=== PATIENT | female | born 1990 | race African-American/Black ===

== ENCOUNTER 2024-06-08 04:13 | Inpatient (IN) | payer BC ==
[2024-06-08] VITALS (10 sets, daily range): BP systolic 93–114; BP diastolic 69–89; TEMP 97.9–98.7; O2SAT 94–97
[~2024-06-08] VITALS: Ht 175.3 cm; Wt 74.8 kg
[2024-06-08 05:33] LABS: BASOPHILS % (AUTO) 0.4 % (0.0-2.0); EOSINOPHILS # (AUTO) 0.1 K/uL (0.0-0.7); EOSINOPHILS % (AUTO) 2.1 % (0.0-7.0); HEMATOCRIT 39.8 % (31.2-41.9); HEMOGLOBIN 13.4 g/dL (10.9-14.3); LYMPHOCYTES # (AUTO) 4.5 K/uL (0.8-4.8); LYMPHOCYTES % (AUTO) 63.7 % (20.5-51.5); MEAN CORPUSCULAR HEMOGLOBIN 29.3 uug (24.7-32.8); MEAN CORPUSCULAR HGB CONC 34 g/dL (32.3-35.6); MEAN CORPUSCULAR VOLUME 86.7 fL (75.5-95.3); MONOCYTES # (AUTO) 0.2 K/uL (0.1-1.30); MONOCYTES % (AUTO) 2.4 % (0.0-11.0); NEUTROPHILS # (AUTO) 2.2 K/uL (1.8-8.9); NEUTROPHILS % (AUTO) 31.4 % (38.5-71.5); PLATELET COUNT (AUTO) 145 K/uL (179-408); RED BLOOD CELL COUNT(AUTO) 4.59 MIL/uL (3.63-4.92); RED CELL DISTRIBUTION WIDTH 13.8 % (12.3-17.7)
[2024-06-08] MEDS ORDERED: ONDANSETRON 4 MG/2 ML VIAL ONE (05:38)
[2024-06-08] MEDS: ONDANSETRON 4 MG/2 ML VIAL IV ONE (05:40)
[2024-06-08 05:45] LABS: AMMONIA 26 umol/L (11-32)
[2024-06-08 05:53] LABS: ALANINE AMINOTRANSFERASE 319 U/L (14-59); ALBUMIN 3.7 g/dL (3.4-5.0); ALKALINE PHOSPHATASE 128 U/L (50-136); ASPARTATE AMINOTRANSFERASE 324 U/L (15-37); BILIRUBIN,DIRECT 0.2 mg/dL (0.0-0.2); BILIRUBIN,TOTAL 0.6 mg/dL (0.2-1.0); CALCIUM 8.7 mg/dL (8.5-10.1); CARBON DIOXIDE 26 mmol/L (21-32); CHLORIDE 103 mmol/L (98-107); CREATININE 1.2 mg/dL (0.6-1.3); GLUCOSE 205 mg/dL (74-106); POTASSIUM 3.7 mmol/L (3.5-5.1); SODIUM SERUM 143 mmol/L (136-145); UREA NITROGEN, BLOOD 14 mg/dL (7-18)
[2024-06-08 06:04] LABS: DIFFERENTIAL COMMENT 1
[2024-06-08 07:17] LABS: *BILIRUBIN,URIN NEGATIVE (NEGATIVE); *BLOOD, URINE NEGATIVE (NEGATIVE); *CLARITY,URINE CLEAR (CLEAR); *COLOR,URINE YELLOW (YELLOW); *KETONES,URINE NEGATIVE (NEGATIVE); *PROTEIN,URINE 2+ (NEGATIVE); *UROBILINOGEN,URINE 0.2 E.U./dl (NORMAL); LEUKOCYTE ESTERASE ,URINE NEGATIVE (NEGATIVE); NITRITE, URINE NEGATIVE (NEGATIVE); PH,URINE 5.5 (5.0-8.0); UGLUCOSE NEGATIVE (NEGATIVE)
[2024-06-08] MEDS: IV NS 1000 ML 1,000 ML IV ONE (07:19)
[2024-06-08 07:33] LABS: *AMPHETAMINE, URINE NEGATIVE (NEGATIVE); *BARBITURATE, URINE NEGATIVE (NEGATIVE); *BENZODIAZEPINE, URINE NEGATIVE (NEGATIVE); *CANNABINOID, URINE NEGATIVE (NEGATIVE); *COCCAINE, URINE NEGATIVE (NEGATIVE); *OPIATE, URINE NEGATIVE (NEGATIVE); *PHENCYCLIDINE SCREEN,URINE NEGATIVE (NEGATIVE); FENTANYL, URINE NEGATIVE (NEGATIVE)
[2024-06-08] MEDS ORDERED: IV NORMAL SALINE 250 ML IV ONE (07:33)
[2024-06-08] MEDS ORDERED: SWABABLE VALVE TRANSFER SET EA MC ONE (07:33)
[2024-06-08] MEDS ORDERED: IOHEXOL 350 100 ML INFUS..BTL ONE (07:33)
[2024-06-08] MEDS ORDERED: HEPARIN/D5W DRIP 500 ML ONE (08:12)
[2024-06-08] MEDS: HEPARIN/D5W DRIP 500 ML IV ONE (08:24)
[2024-06-08] MEDS: HEPARIN/D5W 25000 UNITS/500 ML BAG IV ONE (08:37)
[2024-06-08] MEDS ORDERED: HEPARIN SODIUM,PORCINE 5,000 UNITS/ML VIAL ONE (09:05)
[2024-06-08] MEDS ORDERED: ACETAMINOPHEN 500 MG TABLET ONE (10:49)
[2024-06-08] MEDS ORDERED: [UNRECOGNIZED DRUG - OTHER] PO (10:54)
[2024-06-08] MEDS: ACETAMINOPHEN 500 MG TABLET PO PRN (10:59)
[2024-06-08] MEDS ORDERED: MAGNESIUM HYDROXIDE 30 ML LIQUID UDC PO PRN (11:15)
[2024-06-08] MEDS ORDERED: ACETAMINOPHEN 325 MG TABLET PO PRN (11:15)
[2024-06-08] MEDS ORDERED: ONDANSETRON 4 MG/2 ML VIAL IV PRN (11:15)
[2024-06-08] MEDS ORDERED: MORPHINE SULFATE 2 MG/1 ML DISP.SYRIN IV PRN (11:15)
[2024-06-08 12:09] LABS: *URINE HCG, QUAL NEGATIVE (NEGATIVE)
[2024-06-08 17:19] LABS: RBC,URINE 0-3 /HPF (0-3); WBC,URINE 0-3 /HPF (0-3)
[2024-06-09] VITALS (24 sets, daily range): BP systolic 96–135; BP diastolic 71–120; TEMP 98.1–98.4; O2SAT 94–99
[2024-06-09] MEDS: HEPARIN/D5W DRIP 500 ML IV PRN (05:06)
[2024-06-09 05:14] LABS: BASOPHILS % (AUTO) 0.4 % (0.0-2.0); EOSINOPHILS # (AUTO) 0.2 K/uL (0.0-0.7); HEMATOCRIT 39.2 % (31.2-41.9); HEMOGLOBIN 13.3 g/dL (10.9-14.3); LYMPHOCYTES # (AUTO) 2.5 K/uL (0.8-4.8); LYMPHOCYTES % (AUTO) 45.5 % (20.5-51.5); MEAN CORPUSCULAR HEMOGLOBIN 29.1 uug (24.7-32.8); MEAN CORPUSCULAR HGB CONC 34 g/dL (32.3-35.6); MEAN CORPUSCULAR VOLUME 85.4 fL (75.5-95.3); MONOCYTES # (AUTO) 0.4 K/uL (0.1-1.30); MONOCYTES % (AUTO) 6.8 % (0.0-11.0); NEUTROPHILS # (AUTO) 2.5 K/uL (1.8-8.9); NEUTROPHILS % (AUTO) 44.3 % (38.5-71.5); PLATELET COUNT (AUTO) 172 K/uL (179-408); RED BLOOD CELL COUNT(AUTO) 4.59 MIL/uL (3.63-4.92); WHITE BLOOD COUNT (AUTO) 5.6 K/uL (3.8-11.8)
[2024-06-09 05:22] LABS: DIFFERENTIAL COMMENT 1
[2024-06-09 05:41] LABS: ALBUMIN 3.4 g/dL (3.4-5.0); BILIRUBIN,TOTAL 0.4 mg/dL (0.2-1.0); CALCIUM 8.4 mg/dL (8.5-10.1); CREATININE 1.1 mg/dL (0.6-1.3); MAGNESIUM 2.3 mg/dL (1.8-2.4); PHOSPHOROUS 4.5 mg/dL (2.5-4.9); POTASSIUM 3.9 mmol/L (3.5-5.1); TOTAL PROTEIN, SERUM 6.6 g/dL (6.4-8.2)
[2024-06-09 05:43] LABS: THYROID STIMULATING HORMONE 1.409 mIU/mL (0.358-3.740)
[2024-06-09] MEDS: PANTOPRAZOLE SODIUM 40 MG TABLET.DR PO SCH (08:22)
[2024-06-10] VITALS (24 sets, daily range): BP systolic 91–131; BP diastolic 55–98; TEMP 97.6–98.3; O2SAT 93–100
[2024-06-10 05:16] LABS: BASOPHILS % (AUTO) 0.5 % (0.0-2.0); EOSINOPHILS # (AUTO) 0.3 K/uL (0.0-0.7); EOSINOPHILS % (AUTO) 6.2 % (0.0-7.0); HEMATOCRIT 39.6 % (31.2-41.9); HEMOGLOBIN 13.3 g/dL (10.9-14.3); LYMPHOCYTES # (AUTO) 2.6 K/uL (0.8-4.8); LYMPHOCYTES % (AUTO) 53.3 % (20.5-51.5); MEAN CORPUSCULAR HEMOGLOBIN 28.7 uug (24.7-32.8); MEAN CORPUSCULAR HGB CONC 34 g/dL (32.3-35.6); MEAN CORPUSCULAR VOLUME 85.3 fL (75.5-95.3); MONOCYTES # (AUTO) 0.4 K/uL (0.1-1.30); MONOCYTES % (AUTO) 7.8 % (0.0-11.0); NEUTROPHILS # (AUTO) 1.6 K/uL (1.8-8.9); NEUTROPHILS % (AUTO) 32.2 % (38.5-71.5); PLATELET COUNT (AUTO) 163 K/uL (179-408); RED BLOOD CELL COUNT(AUTO) 4.64 MIL/uL (3.63-4.92); RED CELL DISTRIBUTION WIDTH 14.1 % (12.3-17.7); WHITE BLOOD COUNT (AUTO) 4.9 K/uL (3.8-11.8)
[2024-06-10 05:30] LABS: DIFFERENTIAL COMMENT 1
[2024-06-10 05:41] LABS: ALBUMIN 3.3 g/dL (3.4-5.0); BILIRUBIN,DIRECT 0.1 mg/dL (0.0-0.2); BILIRUBIN,TOTAL 0.5 mg/dL (0.2-1.0); CALCIUM 8.4 mg/dL (8.5-10.1); MAGNESIUM 2.1 mg/dL (1.8-2.4); PHOSPHOROUS 4.4 mg/dL (2.5-4.9); POTASSIUM 3.9 mmol/L (3.5-5.1); TOTAL PROTEIN, SERUM 6.5 g/dL (6.4-8.2)
[2024-06-11] VITALS (20 sets, daily range): BP systolic 101–141; BP diastolic 64–106; TEMP 97.8–98.1; O2SAT 96–100
[2024-06-11 05:23] LABS: BASOPHILS % (AUTO) 0.7 % (0.0-2.0); EOSINOPHILS # (AUTO) 0.3 K/uL (0.0-0.7); EOSINOPHILS % (AUTO) 6.3 % (0.0-7.0); HEMATOCRIT 39.7 % (31.2-41.9); HEMOGLOBIN 13.2 g/dL (10.9-14.3); LYMPHOCYTES # (AUTO) 2.2 K/uL (0.8-4.8); LYMPHOCYTES % (AUTO) 53.3 % (20.5-51.5); MEAN CORPUSCULAR HEMOGLOBIN 28.4 uug (24.7-32.8); MEAN CORPUSCULAR HGB CONC 33 g/dL (32.3-35.6); MEAN CORPUSCULAR VOLUME 85.1 fL (75.5-95.3); MONOCYTES # (AUTO) 0.3 K/uL (0.1-1.30); MONOCYTES % (AUTO) 7.1 % (0.0-11.0); NEUTROPHILS # (AUTO) 1.3 K/uL (1.8-8.9); NEUTROPHILS % (AUTO) 32.6 % (38.5-71.5); PLATELET COUNT (AUTO) 167 K/uL (179-408); RED BLOOD CELL COUNT(AUTO) 4.66 MIL/uL (3.63-4.92); RED CELL DISTRIBUTION WIDTH 13.8 % (12.3-17.7); WHITE BLOOD COUNT (AUTO) 4.1 K/uL (3.8-11.8)
[2024-06-11 05:40] LABS: DIFFERENTIAL COMMENT 1
[2024-06-11 06:23] LABS: CALCIUM 8.5 mg/dL (8.5-10.1); CREATININE 0.9 mg/dL (0.6-1.3); MAGNESIUM 2.2 mg/dL (1.8-2.4); PHOSPHOROUS 4.9 mg/dL (2.5-4.9); POTASSIUM 3.9 mmol/L (3.5-5.1)
[2024-06-11] MEDS: HEPARIN SODIUM,PORCINE 5,000 UNITS/ML VIAL IV ONE (06:42)
[2024-06-11] MEDS: ENOXAPARIN SODIUM 80 MG/0.8 ML DISP.SYRIN SQ SCH (19:47)
[2024-06-12 08:07] LABS: HOMOCYSTEINE, PLASMA 8.3 umol/L (0.0-14.5)
[2024-06-15 09:07] LABS: *PROTEIN S FREE 73 % (61-136); PTT-LA 32.6 sec (0.0-43.5); THROMBIN NEUTRALIZATION 19.4 sec (0.0-23.0); THROMBIN TIME 65.1 sec (0.0-23.0); THROMBIN TIME MIX 38.5 sec (0.0-23.0); dRVVT 31.2 sec (0.0-47.0)
[2024-06-15 11:06] LABS: LUPUS INTERPRETATION Comment: (.)
== END 2024-06-11 20:30 | disposition short-term general hospital (02) | DRG 176 ==
LOC: ER 04:20 → TRANSITION 10:21 → CCU 13:46
PROVIDERS: ADMIT Internal Medicine; ATTEND Internal Medicine
DX: I26.99 Other pulmonary embolism without acute cor pulmonale (principal); D68.2 Hereditary deficiency of other clotting factors; D68.9 Coagulation defect, unspecified; F41.9 Anxiety disorder, unspecified; R74.01 Elevation of levels of liver transaminase levels; I07.1 Rheumatic tricuspid insufficiency; Z86.19 Personal history of other infectious and parasitic diseases; R79.89 Other specified abnormal findings of blood chemistry; D72.820 Lymphocytosis (symptomatic); D69.6 Thrombocytopenia, unspecified; E88.09 Other disorders of plasma-protein metabolism, not elsewhere classified; I27.20 Pulmonary hypertension, unspecified; Z87.09 Personal history of other diseases of the respiratory system; R00.0 Tachycardia, unspecified; F53.0 Postpartum depression; R06.03 Acute respiratory distress; R73.9 Hyperglycemia, unspecified
CPT/HCPCS: 36415; 70030-TC; 70450; 71045; 71275; 83090; 83735; 84100; 84443; 84484; 84703; 85025; 85305; 85613; 85730; 93307; A4606; A4663; A9150; G0378; J1644; J1650; J2405; J7040; Q9967

== ENCOUNTER 2024-07-02 19:11 | Inpatient (IN) | payer BC ==
[~2024-07-02] VITALS: Ht 180.3 cm; Wt 72.6 kg
[~2024-07-02 19:11] MED LIST: [UNRECOGNIZED DRUG - OTHER] PO
[2024-07-02 20:29] LABS: BASOPHILS % (AUTO) 0.4 % (0.0-2.0); EOSINOPHILS # (AUTO) 0.1 K/uL (0.0-0.7); EOSINOPHILS % (AUTO) 2.8 % (0.0-7.0); HEMATOCRIT 35.7 % (31.2-41.9); LYMPHOCYTES # (AUTO) 0.8 K/uL (0.8-4.8); LYMPHOCYTES % (AUTO) 24.1 % (20.5-51.5); MEAN CORPUSCULAR HEMOGLOBIN 28.6 uug (24.7-32.8); MEAN CORPUSCULAR HGB CONC 34 g/dL (32.3-35.6); MEAN CORPUSCULAR VOLUME 85.2 fL (75.5-95.3); MONOCYTES # (AUTO) 0.2 K/uL (0.1-1.30); MONOCYTES % (AUTO) 5.2 % (0.0-11.0); NEUTROPHILS # (AUTO) 2.2 K/uL (1.8-8.9); NEUTROPHILS % (AUTO) 67.5 % (38.5-71.5); PLATELET COUNT (AUTO) 111 K/uL (179-408); RED CELL DISTRIBUTION WIDTH 14.1 % (12.3-17.7); WHITE BLOOD COUNT (AUTO) 3.2 K/uL (3.8-11.8)
[2024-07-02] MEDS ORDERED: IV NORMAL SALINE 250 ML IV ONE (20:32)
[2024-07-02] MEDS ORDERED: SWABABLE VALVE TRANSFER SET EA MC ONE (20:32)
[2024-07-02] MEDS ORDERED: IOHEXOL 350 100 ML INFUS..BTL ONE (20:32)
[2024-07-02 20:34] LABS: DIFFERENTIAL COMMENT 1
[2024-07-02 20:37] LABS: CALCIUM 8.6 mg/dL (8.5-10.1); POTASSIUM 3.4 mmol/L (3.5-5.1)
[2024-07-02 20:49] LABS: ALBUMIN 3.9 g/dL (3.4-5.0); BILIRUBIN,TOTAL 0.4 mg/dL (0.2-1.0); TOTAL PROTEIN, SERUM 7.6 g/dL (6.4-8.2)
[2024-07-02 20:51] LABS: LACTIC ACID 2.3 mmol/L (0.4-2.0)
[2024-07-02 21:18] LABS: ABG BASE EXCESS 1.8 mmol/L (-2.0-3.0); ABG HCO3 22.8 mmol/L (21.0-28.0); ABG PH 7.561 (7.350-7.450); ABG PO2 97.1 mmHg (83.0-108.0); ABG SITE LEFT RADIAL; ABG TOTAL HEMOGLOBIN 12.7 G/dL (12.0-16.0); AaDO2 98.2 mmHg; COHb 0.3 % (0.5-1.5); MetHb 0.3 % (0.0-1.5); O2Hb 97.2 % (94.0-98.0)
[2024-07-02] MEDS ORDERED: POTASSIUM CHLORIDE 20 MEQ TAB.PRT.SR ONE (22:25)
[2024-07-02] MEDS: POTASSIUM CHLORIDE 20 MEQ TAB.PRT.SR PO ONE (22:25)
[2024-07-02] MEDS: IV NS 1000 ML 1,000 ML IV ONE (22:37)
[2024-07-03 02:36] LABS: *URINE HCG, QUAL NEGATIVE (NEGATIVE)
[2024-07-03 02:37] LABS: *BILIRUBIN,URIN NEGATIVE (NEGATIVE); *BLOOD, URINE 2+ (NEGATIVE); *CLARITY,URINE CLEAR (CLEAR); *COLOR,URINE YELLOW (YELLOW); *KETONES,URINE NEGATIVE (NEGATIVE); *PROTEIN,URINE NEGATIVE (NEGATIVE); *UROBILINOGEN,URINE 0.2 E.U./dl (NORMAL); LEUKOCYTE ESTERASE ,URINE TRACE (NEGATIVE); NITRITE, URINE NEGATIVE (NEGATIVE); PH,URINE 5.5 (5.0-8.0); UGLUCOSE NEGATIVE (NEGATIVE)
[2024-07-03 02:44] LABS: *AMPHETAMINE, URINE NEGATIVE (NEGATIVE); *BARBITURATE, URINE NEGATIVE (NEGATIVE); *BENZODIAZEPINE, URINE NEGATIVE (NEGATIVE); *CANNABINOID, URINE NEGATIVE (NEGATIVE); *COCCAINE, URINE NEGATIVE (NEGATIVE); *OPIATE, URINE NEGATIVE (NEGATIVE); *PHENCYCLIDINE SCREEN,URINE NEGATIVE (NEGATIVE); FENTANYL, URINE NEGATIVE (NEGATIVE)
[2024-07-03 03:06] LABS: WBC,URINE 0-3 /HPF (0-3)
[2024-07-03 03:07] LABS: BACTERIA,URINE FEW /HPF (NONE SEEN); SQUAMOUS EPITHELIAL CELL,UR FEW /HPF (NONE SEEN)
[2024-07-03] MEDS ORDERED: APIX5TAB PO (05:46)
[2024-07-03] MEDS ORDERED: ONDANSETRON 4 MG/2 ML VIAL ONE (06:16)
[2024-07-03] MEDS ORDERED: MORPHINE SULFATE 4 MG/1 ML DISP.SYRIN ONE (06:16)
[2024-07-03] MEDS: MORPHINE SULFATE 2 MG/1 ML DISP.SYRIN IV ONE (06:20)
[2024-07-03] MEDS: ONDANSETRON 4 MG/2 ML VIAL IV ONE (06:25)
[2024-07-03] MEDS ORDERED: CEFTRIAXONE /D5W 50ML IVPB **ER PYXIS IV ONE (07:36)
[2024-07-03] MEDS: CEFTRIAXONE 1 G in IV DEXTROSE 5% 50 ML IV ONE (07:44)
[2024-07-03] MEDS ORDERED: ACETAMINOPHEN 500 MG TABLET ONE (11:39)
[2024-07-03] MEDS: ACETAMINOPHEN 500 MG TABLET PO ONE (11:44)
[2024-07-03] MEDS ORDERED: MISCELLANEOUS MED PO ONE (12:45)
[2024-07-03] MEDS ORDERED: AZITHROMYCIN 250 MG TABLET ONE (12:46)
[2024-07-03] MEDS: AZITHROMYCIN 250 MG TABLET PO ONE (12:58)
[2024-07-03] MEDS: APIXABAN 5 MG TABLET PO ONE (14:14)
[2024-07-03] MEDS ORDERED: ACETAMINOPHEN 325 MG TABLET PO PRN (14:15)
[2024-07-03] MEDS ORDERED: HYDROCODONE/APAP 10-325 MG TABLET PO PRN (14:15)
[2024-07-03] MEDS: IV LACTATED RINGERS SOLUTION 1,000 ML IV SCH (14:15)
[2024-07-03] MEDS ORDERED: REMEDY ESSENTIAL ZINC PASTE 113 GM TP PRN (14:15)
[2024-07-03] MEDS ORDERED: MAGNESIUM HYDROXIDE 30 ML LIQUID UDC PO PRN (14:15)
[2024-07-03] MEDS ORDERED: ONDANSETRON 4 MG/2 ML VIAL IV PRN (14:15)
[2024-07-03 16:20] VITALS: O2SAT 95
[2024-07-03] MEDS ORDERED: ALBUTEROL SULFATE 2.5 MG/3 ML NEBU ONE (16:20)
[2024-07-03] MEDS ORDERED: IPRATROPIUM BROMIDE 0.5 MG/2.5 ML NEBU ONE (16:20)
[2024-07-03 16:30] VITALS: O2SAT 99
[2024-07-03] MEDS: IPRATROPIUM BROMIDE 0.5 MG/2.5 ML NEBU NEB SCH (16:54)
[2024-07-03] MEDS: ALBUTEROL SULFATE 2.5 MG/3 ML NEBU NEB SCH (16:54)
[2024-07-03] MEDS: IV NS 1000 ML 1,000 ML IV PRN (17:51)
[2024-07-03 18:04] VITALS: BP 101/62; TEMP 98.1; O2SAT 99
[2024-07-03 19:15] VITALS: O2SAT 95
[2024-07-03 19:30] VITALS: O2SAT 99
[2024-07-03 20:00] VITALS: BP 98/62; TEMP 97.6; O2SAT 99
[2024-07-03] MEDS: APIXABAN 5 MG TABLET PO SCH (21:39)
[2024-07-04] VITALS (13 sets, daily range): BP systolic 99–129; BP diastolic 55–85; TEMP 97.6–98.9; O2SAT 94–100
[2024-07-04] MEDS: PANTOPRAZOLE SODIUM 40 MG TABLET.DR PO SCH (06:41)
[2024-07-04 07:05] LABS: BASOPHILS % (AUTO) 0.2 % (0.0-2.0); EOSINOPHILS # (AUTO) 0.1 K/uL (0.0-0.7); EOSINOPHILS % (AUTO) 1.9 % (0.0-7.0); HEMOGLOBIN 10.9 g/dL (10.9-14.3); LYMPHOCYTES # (AUTO) 1.8 K/uL (0.8-4.8); LYMPHOCYTES % (AUTO) 35.7 % (20.5-51.5); MEAN CORPUSCULAR HEMOGLOBIN 29.2 uug (24.7-32.8); MEAN CORPUSCULAR HGB CONC 34 g/dL (32.3-35.6); MEAN CORPUSCULAR VOLUME 85.3 fL (75.5-95.3); MONOCYTES # (AUTO) 0.3 K/uL (0.1-1.30); NEUTROPHILS % (AUTO) 57.2 % (38.5-71.5); PLATELET COUNT (AUTO) 73 K/uL (179-408); RED BLOOD CELL COUNT(AUTO) 3.75 MIL/uL (3.63-4.92); RED CELL DISTRIBUTION WIDTH 14.4 % (12.3-17.7); WHITE BLOOD COUNT (AUTO) 5.2 K/uL (3.8-11.8)
[2024-07-04 07:08] LABS: DIFFERENTIAL COMMENT 1
[2024-07-04 07:24] LABS: CALCIUM 8.1 mg/dL (8.5-10.1); CREATININE 0.8 mg/dL (0.6-1.3); PHOSPHOROUS 3.6 mg/dL (2.5-4.9); POTASSIUM 3.4 mmol/L (3.5-5.1)
[2024-07-04] MEDS: CEFTRIAXONE 2 G in IV DEXTROSE 5% 100 ML IV SCH (08:40)
[2024-07-04] MEDS: POTASSIUM CHLORIDE 20 MEQ TAB.PRT.SR PO ONE (11:20)
[2024-07-04] MEDS: AZITHROMYCIN IV 250 MG in IV DEXTROSE 5% 250 ML IV SCH (12:03)
[2024-07-05 00:10] VITALS: BP 129/78; TEMP 97.8
[2024-07-05 04:50] VITALS: BP 138/78; TEMP 98; O2SAT 99
[2024-07-05 07:08] LABS: BASOPHILS % (AUTO) 0.1 % (0.0-2.0); EOSINOPHILS # (AUTO) 0.3 K/uL (0.0-0.7); EOSINOPHILS % (AUTO) 6.7 % (0.0-7.0); HEMATOCRIT 30.2 % (31.2-41.9); HEMOGLOBIN 10.4 g/dL (10.9-14.3); LYMPHOCYTES # (AUTO) 1.9 K/uL (0.8-4.8); LYMPHOCYTES % (AUTO) 40.9 % (20.5-51.5); MEAN CORPUSCULAR HEMOGLOBIN 29.4 uug (24.7-32.8); MEAN CORPUSCULAR HGB CONC 35 g/dL (32.3-35.6); MEAN CORPUSCULAR VOLUME 85.2 fL (75.5-95.3); MONOCYTES # (AUTO) 0.3 K/uL (0.1-1.30); MONOCYTES % (AUTO) 6.1 % (0.0-11.0); NEUTROPHILS # (AUTO) 2.1 K/uL (1.8-8.9); NEUTROPHILS % (AUTO) 46.2 % (38.5-71.5); PLATELET COUNT (AUTO) 97 K/uL (179-408); RED BLOOD CELL COUNT(AUTO) 3.54 MIL/uL (3.63-4.92); RED CELL DISTRIBUTION WIDTH 13.9 % (12.3-17.7); WHITE BLOOD COUNT (AUTO) 4.5 K/uL (3.8-11.8)
[2024-07-05 07:20] VITALS: BP 146/85; TEMP 98.3; O2SAT 99
[2024-07-05 07:27] LABS: DIFFERENTIAL COMMENT 1
[2024-07-05 07:46] LABS: CALCIUM 7.7 mg/dL (8.5-10.1); CREATININE 0.8 mg/dL (0.6-1.3); PHOSPHOROUS 3.3 mg/dL (2.5-4.9); POTASSIUM 3.9 mmol/L (3.5-5.1)
[2024-07-05] MEDS ORDERED: AMOX-427 PO (10:58)
[2024-07-05 11:25] VITALS: BP 127/88; TEMP 97.8; O2SAT 99
[2024-07-05 11:35] VITALS: O2SAT 97
[2024-07-05 11:45] VITALS: O2SAT 99
== END 2024-07-05 14:00 | disposition home or self-care (01) | DRG 193 ==
LOC: ER 19:11 → TRANSITION 07-03 12:12 → TELE3 07-03 16:35
PROVIDERS: ADMIT Nurse Practitioner Acute Care; ATTEND Nurse Practitioner Acute Care
DX: J15.9 Unspecified bacterial pneumonia (principal); I26.99 Other pulmonary embolism without acute cor pulmonale; D68.59 Other primary thrombophilia; E87.20 Acidosis, unspecified; Z86.711 Personal history of pulmonary embolism; Z79.01 Long term (current) use of anticoagulants; E87.6 Hypokalemia; D69.6 Thrombocytopenia, unspecified; F32.A Depression, unspecified; F41.9 Anxiety disorder, unspecified; I27.20 Pulmonary hypertension, unspecified
CPT/HCPCS: 36415; 36600; 71045; 71275; 82803; 83605; 83735; 84100; 84484; 84703; 85025; 85610; 85730; 87040; 94640; 94760; A4606; A4663; A9150; G0378; J0456; J0696; J2270; J2405; J3590; J7040; J7050; J7120; Q0144; Q9967

== ENCOUNTER 2025-04-27 18:26 | Emergency (ER) | payer BC ==
[~2025-04-27] VITALS: Ht 180.3 cm; Wt 64.4 kg
[~2025-04-27 18:26] MED LIST changes: +AMOX-427 PO; +APIX5TAB PO
[2025-04-27 19:18] LABS: PLATELET COUNT (AUTO) 139 K/uL (179-408); RED BLOOD CELL COUNT(AUTO) 4.52 MIL/uL (3.63-4.92); RED CELL DISTRIBUTION WIDTH 14.0 % (12.3-17.7); WHITE BLOOD COUNT (AUTO) 4.0 K/uL (3.8-11.8)
[2025-04-27 19:33] LABS: CREATININE 0.8 mg/dL (0.6-1.3); SODIUM SERUM 137.0 mmol/L (136-145); UREA NITROGEN, BLOOD 12.0 mg/dL (7-18)
[2025-04-27 19:36] LABS: ASPARTATE AMINOTRANSFERASE 15.0 U/L (15-37); TOTAL PROTEIN, SERUM 7.1 g/dL (6.4-8.2)
[2025-04-27 19:56] LABS: *URINE HCG, QUAL NEGATIVE (NEGATIVE)
[2025-04-27] MEDS ORDERED: SWABABLE VALVE TRANSFER SET EA MC ONE (19:59)
[2025-04-27] MEDS ORDERED: IOHEXOL 350 100 ML INFUS..BTL ONE (19:59)
[2025-04-27] MEDS ORDERED: IV NORMAL SALINE 250 ML IV ONE (20:00)
[2025-04-27 22:00] VITALS: BP 102/67
[2025-04-27] MEDS: IV NS 1000 ML 1,000 ML IV ONE (22:10)
[2025-04-27 23:19] VITALS: BP 104/68; O2SAT 98
== END 2025-04-27 23:21 | disposition home or self-care (01) ==
LOC: ER 18:26
DX: R06.00 Dyspnea, unspecified (principal); R06.02 Shortness of breath; R09.81 Nasal congestion; Z79.01 Long term (current) use of anticoagulants; Z86.711 Personal history of pulmonary embolism; Z20.822 Contact with and (suspected) exposure to COVID-19
CPT/HCPCS: 36415; 71045; 71275; 84443; 84484; 84703; 85025; 85730; A4606; A4663; J7040; Q9967